=== PATIENT | male | born 1975 | race African-American/Black ===

== ENCOUNTER → 2021-08-08 | Outpatient (CLI) | payer OTHER ==
[~2021-08-08] MED LIST: AUGMENTIN 875-1 EACH PO; BACTRIM DS TAB1 EACH PO; CEPHALEXIN500 MG PO; FLONASE 0.05% N16 GM; KEFLEX CAP 500500 MG PO; NORCO 10-325 T1 EACH PO; NORCO 5-325 TA1 EACH PO; NORCO 7.5-3251 EACH PO; SUDAFED 60 MG T60 MG PO; VIBRAMYCIN100 MG PO
== END ==
LOC: NM 08:00
DX: R10.11 Right upper quadrant pain (principal)
CPT/HCPCS: 78226

== ENCOUNTER 2022-05-31 02:50 | Emergency (ER) | payer OTHER ==
[2022-05-31] MEDS ORDERED: CEPHALEXIN500 M1 PO (05:50)
== END 2022-05-31 05:55 | disposition home or self-care (01) ==
LOC: ER1 02:50
DX: S02.31XA Fracture of orbital floor, right side, initial encounter for closed fracture (principal); S02.40CA Maxillary fracture, right side, initial encounter for closed fracture; E11.9 Type 2 diabetes mellitus without complications; I10 Essential (primary) hypertension; F17.210 Nicotine dependence, cigarettes, uncomplicated; W22.8XXA Striking against or struck by other objects, initial encounter
CPT/HCPCS: 70450; 70486; 99283